=== PATIENT | male | born 1965 | race African-American/Black ===

== ENCOUNTER 2019-03-06 11:11 | Emergency (ER) | payer SELFPAY ==
[~2019-03-06] VITALS: Ht 188 cm; Wt 90.7 kg
[2019-03-06 11:23] VITALS: BP 159/100
== END 2019-03-06 12:40 | disposition home or self-care (01) ==
LOC: ER 11:11
DX: M65.221 Calcific tendinitis, right upper arm (principal); F17.210 Nicotine dependence, cigarettes, uncomplicated; I10 Essential (primary) hypertension